=== PATIENT | male | born 1970 | race Caucasian/White ===

== ENCOUNTER → 2021-12-29 | Outpatient (CLI) | payer OTHER ==
--- NOTE | 2021-12-29 14:31 | Diagnostic Imaging Report ---
PROCEDURE: CT abdomen and pelvis without contrast. TECHNIQUE: Multiple contiguous axial images were obtained through the abdomen and pelvis without the use of intravenous contrast. Auto Exposure Controls were utilized during the CT exam to meet ALARA standards for radiation dose reduction. INDICATION: Hematuria and right flank pain. COMPARISON: No prior studies are available for comparison. FINDINGS: Lung bases are clear of acute infiltrates. The liver and gallbladder are unremarkable. There is no biliary ductal dilatation. Pancreas and spleen are unremarkable. No adrenal mass is detected. There are numerous bilateral nonobstructing renal calculi. In addition, there is a tiny approximately 1 to 2 mm stone in the distal right ureter just above the UVJ producing mild hydroureteronephrosis. No bladder calculi are seen. Aorta is nonaneurysmal. Bowel loops are normal in caliber. There is no obstruction. There is no free fluid. Prostate is unremarkable. IMPRESSION: Bilateral nonobstructing nephrolithiasis. In addition, there is a tiny distal right ureteric calculus producing [id number] hydroureteronephrosis. Dictated by: Dictated on workstation # [id number]
== END ==
LOC: RAD 14:12
PROVIDERS: ATTEND Nurse Practitioner Family
DX: N13.2 Hydronephrosis with renal and ureteral calculous obstruction (principal)
CPT/HCPCS: 74176